=== PATIENT | female | born 1950 | race Caucasian/White ===

== ENCOUNTER 2020-03-29 15:19 | Outpatient (CLI) | payer BC, MEDICARE ==
[~2020-03-29 15:19] MED LIST: AMLO10TA PO; LACT1CAP57 PO; LANS30CA56 PO
== END 2020-03-29 23:59 | disposition home or self-care (01) ==
LOC: VAS 15:19
PROVIDERS: ATTEND Family Medicine
DX: I82.531 Chronic embolism and thrombosis of right popliteal vein (principal)
CPT/HCPCS: 93971